=== PATIENT | female | born 1985 | race Caucasian/White ===

== ENCOUNTER → 2019-06-23 10:33 | Outpatient (CLI) | payer SELFPAY ==
[2019-06-23 08:52] VITALS: BMI 25.7
[2019-06-23 10:42] LABS: Pathologist Comment May follow
[2019-06-23 11:06] LABS: Synovial Fld Mononuclear WBC % 11.8 %; Synovial Fld Polynuclear WBC % 88.2 %
[2019-06-23 11:49] LABS: AUTO B FLUID DILUENT BKGD CT WBC <0.1 RBC <0.01 (W<.1,R<.01); CRYSTALS, BODY FLUID CALCIUM PYROPHOS; Source- Body Fluid SYNOVIAL
[2019-06-23 11:51] LABS: Appearance /Synovial Fluid Sl Cl (CLEAR); Color / Synovial Fluid Yellow (Pale Yellow); RBC /Synovial Fluid 798 /mm3 (0)
[2019-06-23 12:03] LABS: Lymph 4 %; Neutrophil 96 % (0-25)
[2019-06-23 12:04] LABS: Body Fluid QC Type(s) BF4Q,BF5Q
[2019-06-24 13:34] LABS: Pathologist Review Reviewed
[2019-06-24 16:32] LABS: GLUCOSE, SYNOVIAL FLUID 28 mg/dL (.); PROTEIN, SYNOVIAL FLUID 5.5 g/dL (.)
== END ==
PROVIDERS: Visit Provider Orthopaedic Surgery
DX: A69.23 Arthritis due to Lyme disease (principal)
CPT/HCPCS: 82945; 84157; 87015; 87070; 87075; 87102; 87116; 87205; 87206; 89050; 89051; 89060

== ENCOUNTER → 2021-06-17 | Outpatient (CLI) | payer SELFPAY ==
[2019-06-23 08:52] VITALS: BMI 25.7
[2021-06-17 18:02] LABS: Body Fluid QC Type(s) BF3Q; CRYSTALS, BODY FLUID See PATH REV
[2021-06-17 18:08] LABS: Source- Body Fluid SYNOVIAL
[2021-06-20 13:06] LABS: Pathologist Review Reviewed
== END | disposition home or self-care (01) ==
LOC: LABSPEC 14:43
PROVIDERS: Referring Provider Orthopaedic Surgery; Visit Provider Orthopaedic Surgery
DX: M25.461 Effusion, right knee (principal)
CPT/HCPCS: 87070; 87075; 87205; 89060

== ENCOUNTER → 2021-08-29 | Outpatient (CLI) | payer SELFPAY ==
[2021-08-29 10:19] LABS: Body Fluid QC Type(s) BF1Q; Source- Body Fluid SYNOVIAL
[2021-08-29 13:15] LABS: CRYSTALS, BODY FLUID REV
[2021-08-29 15:46] LABS: EXAGEN MAILED SPECIMEN
[2021-08-29 17:38] LABS: Absolute Lymphocyte Count 1.83 X10^3/uL (0.83-4.51); Absolute Neutrophil Count 6.6 X10^3/uL (2.0-7.7); Basophil# 0.02 X10^3/uL; Basophil% 0.2 % (0-1); Eosinophils% 1.1 % (0-5); Hematocrit 35.9 % (37-47); Hemoglobin 11.7 g/dL (12.0-15.0); Lymphocyte # 1.83 X10^3/ul (0.83-4.51); Mean Corp Hgb Conc 32.6 g/dL (32-36); Mean Corpuscular Hgb 28.8 pg (27.0-32.0); Mean Corpuscular Volume 88.4 fL (81-99); Mean Platelet Vol. 8.9 fl (6.2-12.0); Monocyte# 0.58 X10^3/uL; Monocyte% 6.3 % (0-10); NRBC Flagged by Analyzer 0 % (0-5); Neutrophil # 6.59 X10^3/uL (2.7-7.7); Platelet Count 421 K/mm3 (150-450); RBC Distribution Width CV 12.4 % (11.6-14.6); RBC Distribution Width SD 40.1 fl (35.1-43.9); Red Blood Count 4.06 M/mm3 (4.2-5.4); White Blood Count 9.2 K/mm3 (4.4-11.0)
[2021-08-29 17:41] LABS: Color, Urine Yellow (Yellow); Glucose, Dipstick Normal (Normal); Ketone-Dipstick Negative (Negative); Leukocyte Esterase-Dipstick Negative /ul (Negative); Nitrite-Dipstick Negative (Negative); Occult Blood-Urine Negative /ul (Negative); Protein-Dipstick Negative (Negative); Urine Bilirubin Dipstick Negative (Negative); Urine Clarity Clear (Clear); Urine Urobilinogen Normal (Normal); Urine pH 6.5 (5.0 - 8.0)
[2021-08-29 17:53] LABS: ALB/GLOB Ratio 0.7 RATIO (0.9-2.4); AST(SGOT) 14 U/L (15-37); Alanine Aminotransfer ALT/SGPT 51 U/L (13-56); Albumin, Serum 3.6 g/dL (3.2-5.0); Alkaline Phosphatase 120 U/L (45-117); Anion Gap 9 (5-15); BUN 11 mg/dL (7-18); BUN/Creat Ratio 15.1 RATIO (10-20); Calcium,Total 9.9 mg/dL (8.5-10.1); Chloride 102 mmol/L (98-107); Creatinine, Serum 0.73 mg/dL (0.55-1.02); EST Glomerular Filtration Rate 96 mL/min (>60); Est Glom Filt Rate - Afr Amer 117 mL/min (>60); Globulin 5.3 g/dL (2.2-4.2); Glucose 82 mg/dL (74-106); Potassium 3.7 mmol/L (3.5-5.1); Protein, Total 8.9 g/dL (6.4-8.2); Sodium Level 138 mmol/L (136-145)
[2021-08-29 17:55] LABS: Protein, Urine (Random) < 6.0 mg/dL (<11.9); Protein:Creat Ratio 153 mg/g CRE (0-200)
[2021-08-29 17:57] LABS: International Normalized Ratio 1.1; Prothrombin Time (Protime)PT. 13.8 SECONDS (11.7-14.9)
[2021-08-29 17:58] LABS: Partial Thromboplast Time 42.4 Seconds (24.1-36.2)
[2021-08-30 09:02] LABS: Hepatitis B Surface Antibody Non-Reactive; Hepatitis B Surface Antigen Non-Reactive (Nonreactive); Hepatitis C Antibody Non-Reactive (Nonreactive)
[2021-09-01 07:57] LABS: Thrombin Time 15.2 sec (0.0-23.0)
[2021-09-07 00:07] LABS: Dilute Russell Viper Venom 71.3 sec (0.0-47.0); Hexagonal Phase Phospholipid 3 sec (0-11); Hexagonal Phase Phospholipid 2 3 sec (0-11); Lyme IgG P18 Ab Present (.); Lyme IgG P23 Ab Present (.); Lyme IgG P28 Ab Present (.); Lyme IgG P30 Ab Present (.); Lyme IgG P39 Ab Present (.); Lyme IgG P41 Ab Present (.); Lyme IgG P45 Ab Present (.); Lyme IgG P58 Ab Present (.); Lyme IgG P66 Ab Present (.); Lyme IgG P93 Ab Present (.); Lyme IgM P23 Ab Absent (.); Lyme IgM P39 Ab Absent (.); Lyme IgM P41 Ab Absent (.); PTT-LA Mix 52.4 sec (0.0-48.9)
[2021-09-07 13:25] LABS: Interpretation Comment: (.); Lyme IgG WB Interpretation Positive (.); Lyme IgM WB Interpretation Negative (.)
== END | disposition home or self-care (01) ==
PROVIDERS: Internal Medicine Rheumatology; Referring Provider Orthopaedic Surgery; Visit Provider Orthopaedic Surgery
DX: M06.4 Inflammatory polyarthropathy (principal); R76.8 Other specified abnormal immunological findings in serum; M25.462 Effusion, left knee
CPT/HCPCS: 36415; 80053; 81002; 82570; 84156; 85025; 85598; 85610; 85670; 85730; 86617; 86706; 86803; 87340; 89060

== ENCOUNTER → 2025-10-29 | Outpatient (CLI) | payer SELFPAY ==
--- NOTE | 2025-10-29 13:07 | US_ITS ---
PROCEDURE: PELVIC W/ TRANSVAGINAL 10/29/2025 REASON FOR EXAM: EVALUATE FOR FIBROID TECHNIQUE: Procedure Code: [id number] Modality: US Procedure: PELVIC W/ TRANSVAGINAL COMPARISON: None FINDINGS: Measurements: Uterus:Measures 10.2 x 6.2 x 4.6 cm. Hypoechoic lesion in the posterior uterus measures 3.4 x 3.4 x 2.6 cm. No other lesions. Endometrial Thickness: Measures 6 mm. No focal lesion. Right Ovary: Measures 3.1 x 2.9 x 2.1cm. Normal vascular flow. No mass. Left ovary measures 3.0 x 2.8 x 1.6 cm. Normal vascular flow. Other: No free pelvic fluid. US/Pelvic w/ Transvaginal IMPRESSION: 3.4 cm uterine leiomyoma. Reading Location: [id number]
--- OUTSIDE RECORDS SUMMARY | 2025-10-29 15:42 | XMS RPT_ITS | CCD ---
Author Organization [facility] Inform ion Partnership [facility] Care Team Providers Care Alterations Workroom Clerk Name Role Phone WHIT TRIPLETT Admitting Unavailable WHIT TRIPLETT Attending Unavailable WHIT TRIPLETT Primary Care Unavailable BUDDY LOZANO Consulting Unavailable PROVIDER, UNKNOWN Consulting Unavailable Care Physician, No Primary Primary Care Provider Unavailable Care Physician, No Primary Referring Provider Un available Jesus Bennett Attending Provider [phone] Care Physician, No Primary Primary Care Unava ilable Jesus Bennett Attending Unavailable Care Physician, No Primary Referring Unava ilable Jesus Bennett Attending Unavailable Care Physician, No Primary Referring Unava ilable Care Physician, No Primary Primary Care Unava ilable Medications Current Medications Medication Drug Class(es) Dates Sig (Normalized) Sig (Original) amoxicillin 875 mg / clavulanate 125 mg oral tablet (3 sources) Penicillin-class Antibacterial Start: 06-10-2025 Amoxicillin-Pot Clavulanate 875-125 mg tablet Active 1 {tbl} PO Q12H 14 0 June 10, 2025 12:00am Start: 02-27-2024 End: 12-30-2024 Amoxicillin-Pot Clavulanate 875-125 mg tablet Discontinued 1 {tbl} PO Q12H 20 0 February 27, 2024 12:00am December 30, 2024 11:16am Start: 04-04-2023 End: 04-11-2023 Amoxicillin-Pot Clavulanate 875-125 mg tablet Discontinued 1 {tbl} PO Q12H 14 7 0 April 04, 2023 12:00am April 10, 2023 12:00am April 11, 2023 12:04am 12 hr dextromethorphan hydrobromide 30 mg / guaiFENesin 600 mg extended release oral tablet (2 sources) Uncompetitive E-ejyljv-S-aspartate Receptor Antagonist, Sigma-1 Agonist Start: 12-30-2024 Dextromethorphan-Guaifenesin 30-600 mg tablet extended release 12 hr Active 1 {tbl} PO Q12H as needed for cough 14 0 December 30, 2024 1:00am Start: 04-04-2023 End: 02-27-2024 take 1 mL by mouth every four hours as needed for cough Dextromethorphan-Guaifenesin (Adult Tuss in Cough Congest Dm) 10-100 mg/5 mL liquid Discontinued 10 mL PO Q4H as needed for cough 236 0 April 04, 2023 12:00am February 27, 2024 8:46am Lactobacillus Combination No.4 (Probiotic) 3 billion cell capsule (1 source) Start: 09-23-2021 take 3 capsules by mouth once daily Lactobacillus Combination No.4 (Probiotic) 3 billion cell capsule Active 3000 NMA PO DAILY September 23, 2021 12:00am administer with a meal Multivitamin tablet (1 source) Start: 09-23-2021 Multivitamin t ablet Active 1 {tbl} PO DAILY September 23, 2021 12:00am Turmeric extract (1 source) Start: 08-29-2021 Turmeric 400 m g capsule Active mg PO August 29, 2021 12:00am Completed/Discontinued Medications Medication Drug Class(es) Dates Sig (Normalized) Sig (Original) doxycycline hyclate 100 mg oral capsule (2 sources) Tetracycline-class Drug Start: 06-23-2019 End: 08-29-2021 take 1 capsule by mouth twice daily Doxycycline Hyclate 100 mg capsule Discontinued 100 mg PO TWICE A DAY 56 0 June 23, 2019 12:00am August 29, 2021 8:29am 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 12 hr guaiFENesin 600 mg extended release oral tablet (1 source) Start: 02-27-2024 End: 12-30-2024 take 1 tablet by mouth every twelve hours as needed for congestion Guaifenesin 600 mg tablet extended release 12hr Discontinued 600 mg PO Q12H as needed for congestion 20 0 February 27, 2024 12:00am December 30, 2024 11:16am oseltamivir 75 mg oral capsule (1 source) Neuraminidase Inhibitor Start: 12-30-2024 End: 01-04-2025 take 1 capsule by mouth every twelve hours Oseltamivir (Tamiflu) 75 mg capsule Discontinued 75 mg PO Q12H 10 5 0 December 30, 2024 1:00am January 03, 2025 1:00am January 04, 2025 1:12am predniSONE 10 mg oral tablet (1 source) Start: 09-09-2021 End: 06-10-2025 Prednisone 10 mg tablet Discontinued NMA PO September 09, 2021 12:00am June 10, 2025 3:13pm Problems Problem Classification Problem Date Documented Da te Episodic/Chronic Influenza (1 source) Influenza due to Influenza A virus; Translations: [Influenza due to other identified influenza virus with other respiratory manifestations] 12-30-2024 Episodic Joint disorders and dislocations; trauma-related (1 source) Tear of lateral meniscus of knee; Translations: [Other tear of lateral meniscus, current injury, unspecified knee, initial encounter] 09-23-2021 Episodic Other infections; including parasitic (1 source) Lyme disease; Translations: [Lyme disease, unspecified] 08-29-2021 Episodic Other lower respiratory disease (1 source) Cough; Translations: [Cough] 12-30-2024 Episodic Other non-traumatic joint disorders (1 source) Effusion of joint of left knee; Translations: [Effusion, left knee] 08-29-2021 Episodic Other upper respiratory infections (1 source) Sinusitis; Translations: [Chronic sinusitis, unspecified] 04-04-2023 Chronic Other upper respiratory infections (1 source) Acute sinusitis; Translations: [Acute sinusitis, unspecified] 06-10-2025 Episodic Unclassified (1 source) Cough, unspecified; Translations: [Cough, unspecified] Onset: 12-30-2024 Results Test Name Value Interpretation Reference Range Facil ity Office Visit Reporton 2024 Office Visit Report [facility] [address] [place] [address] OFFICE VISIT Date of Service: 06/10/25 MR#: [id number] Acct: [id number] Patient: MARQUES TRIPLETT Rep #: [id number] 3 : 1985 Provider: GUZMAN Piña Age/Sex: 40/F Location: [facility] Status: Signed Intake Vital Signs 12/30/24 10:15 06/10/25 15:11 Height 1.55 m 1.55 m Weight: 76.204 kg 77.564 kg BMI 31.7 32.3 BP 117/81 H 108/70 Blood Pressure Location Rt brachial Rt brachial Position Sitting Sitting Pulse 85 82 Pulse Source Monitor Monitor Temp 98.6 F 98.7 F Temp Source Temporal Temporal Pulse Oximetry (%) 98 96 Oxygen Delivery Method room air Intake Visit Reasons: EAR ACHE/ SORE THROAT/HEADACHE Chief Complaint: sinus pain Allergies No Known Allergies Allergy (Unverified 06/10/25 15:12) Medications ???Medication ???Instructions ???Recorded ???Confirmed ???Type turmeric 400 mg capsule mg PO 08/29/21 06/10/25 History lactobacillus combination no.4 3 3,000 mmu cells PO DAILY 09/23/21 06/10/25 History billion cell capsule (Probiotic) multivitamin 1 tab PO DAILY 09/23/21 06/10/25 H istory dextromethorphan-guai fenesin 30 1 tab PO Q12H PRN cough #14 tabs 0 12/30/24 06/10/25 Rx mg-600 mg tablet extended [id number] hr amoxicillin 875 mg-potassium 1 tab PO Q12H #14 tabs 06/10/25 Rx clavulanate 125 mg tablet PFSH Medical History (Updated 06/10/25 @ 15:21 by Jesus HINDS, GUZMAN) Hx of Lyme disease HPI HPI Chief Complaint: sinus pain Details: MARQUES TRIPLETT, is a 40 F who presents to the office today for sinus pain. This began yesterday. Pt has left maxillary and frontal sinus pain and pressure. She also has left sided ear pain and left sided sore throat. She has no fever/chills. No cough. No n/v/d. She has not tried taking anything for this yet. ROS Const Constitutional: Positive for fatigue; No chills or fever(s) ENT ENT: Positive for ear or mastoid pain, nasal congestion, sinus pressure, sinus pain and sore throat Resp Respiratory: No cough, shortness of breath or wheezing Gastro GI: No diarrhea, nausea/dyspepsia or vomiting Endo Endocrine: Positive for fatigue Aller/Imm Allergy/Immunologic: No wheezing Exam Const General: cooperative, healthy appearing, comfortable, no acute distress, well developed and well groomed Nutritional Appearance: average body habitus and well nourished Orientation: alert, awake and oriented x3 HENMT Head: normocephalic and atraumatic Face and sinus: sinus tenderness frontal and maxillary Throat: postnasal drainage Neck Lymphatic: lymphadenopathy bilateral anterior cervical Resp Effort Inspection: normal respiratory effort, able to speak in complete sentences, symmetric chest movement and no cough Auscultation: Bilateral: Clear to Auscultation Cardio Rate: regular rate Rhythm: regular rhythm Heart Sounds: no murmurs Coding Level of Care Code Off vis,est,level 3 Diagnoses Acute sinusitis J01.90 Assessment and Plan Assessment and Plan (1) Acute sinusitis: Status: Acute Plan: start amox clav bid x 7 days. also start flonase daily. instructions on proper use of flonase given. if no improvement follow up 1 week for re-eval no chronic medical issues/medication use Medications: New amoxicillin-pot clavulanate 875-125 mg 1 TAB PO Q12H 14 tabs 0RF 06/10/25 1522 Date Jesus HINDS Cosigner Signature: Date (if applicable) CC: Normal [facility] OPERATIVE PROCEDURESon 01-25 OPERATIVE PROCEDURES [facility] OPERATIVE REPORT NAME ACCOUNT SEX AGE ADMIT DISCHARGE PT MED. RECORD# NUMBER DATE DATE TYPE MARQUES TRIPLETT [id number] F 39 01/21/25 Sridevi JIMÉNEZ [id number] ROOM: [facility] DATE OF : 1985 DICTATING PHYSICIAN: Whit Triplett DATE OF SURGERY: January 21, 2025 SURGEON: Whit Triplett MD CONCRETE HOPPER OPERATOR: ANESTHESIOLOGIST: Sonny Munroe CRNA ANESTHETIC: PREOPERATIVE DIAGNOSIS: POSTOPERATIVE DIAGNOSIS: Screening colonoscopy, history of colonic polyps with atypia, and hemorrhoids. OPERATION PERFORMED: Screening colonoscopy. COMPLICATIONS: ESTIMATED BLOOD LOSS: None. SPECIMEN: None. DISPOSITION: Stable, to recovery. INDICATIONS: Marques Triplett is a pleasant 39-year-old lady who has a prior history of a colon polyp with atypia. DESCRIPTION OF OPERATION: After informed consent and intravenous fluids, she was brought to the endoscopy room and placed on a padded gurney in the left lateral decubitus position with adequate padding at pressure points. Time-out verification was done appropriately. The patient was given sedation per Anesthesia with monitoring throughout. Digital examination showed external hemorrhoidal tags, normal tone, and no discrete mass. The Olympus [id number] flexible endoscope was introduced through the anal verge and carefully advanced, protecting the surrounding mucosa. The scope was advanced through the rectal vault and then through the sigmoid colon, which Page 1 of 2 MARQUES TRIPLETT Operative Report MARQUES TRIPLETT : 1985 was rather tortuous. The scope was advanced through the descending colon, beyond the splenic flexure, transverse colon, hepatic flexure, and ascending colon toward the ileocecal junction. The landmarks were noted and documented. The prep was good. The scope was carefully rotated with irrigation and suctioning in a xgdd-hls-hjoin movement and withdrawn. The ascending, transverse, descending and sigmoid colon were carefully viewed with irrigation and suctioning in a circular rotation and a [id number]-qlo-yxuvo movement as needed. In the sigmoid, the scope was withdrawn down into the rectal vault, retroflexed, rotated, straightened out, and withdrawn with decompression. There were some internal and external hemorrhoids, but there was no tear, no fissure, no fungating mass, and no angiodysplasia. No polyps were seen. No biopsies were taken. The patient can have repeat endoscopy, and in view of the fact that she had atypia I would recommend repeating in 5 years rather than the usual 10 years. The case will be discussed with the patient when she is more awake and alert. Follow-up will be as needed. Dictated By: Whit Triplett MD 01/21/25 11:10 JOB #: [id number] Transcribed By: austin 01/21/25 11:54 Electronically signed by: E-Sign Dr. Whit Triplett MD 01/25/25 16:34 Page 2 of 2 MARQUES TRIPLETT Operative Report Normal [facility] URINEon 01-21-2025 Beta HCG ( test) Ql (U) Negative Normal NEGATIVE [facility] Comment on above: Performed By: #### [id number] #### [facility],[address] [place] [address] EXTERNAL QC DONE? YES Normal [facility] Comment on above: Result Comment: Very dilute urine specimens, as indicated by a low specific gravity, may not contain arborist representative levels of hCG. If is still suspected, a first morning urine specimen should be collected 48 hours later and tested. Performed By: #### 2 [id number] #### [facility],[address] [place], [place] [address] INTERNAL QC PASS Normal [facility] Comment on above: Performed By: #### 2 [id number] #### [facility],[address] [place] [address] Office Visit Reporton 2024 Office Visit Report [facility] [address] [place] [id number] OFFICE VISIT Date of Service: 12/30/24 MR#: [id number] Acct: [id number] Patient: MARQUES TRIPLETT ANN Rep #: [id number] 2 : 1985 Provider: GUZMAN Piña Age/Sex: 39/F Location: [facility] Status: Signed Intake Vital Signs 02/27/24 08:39 12/30/24 10:15 Height 1.55 m 1.55 m Weight: 73.936 kg 76.204 kg BMI 30.8 31.7 BP 109/71 117/81 H Blood Pressure Location Lt brachial Rt brachial Position Sitting Sitting Pulse 67 85 Pulse Source Monitor Monitor Temp 98.6 F 98.6 F Temp Source Temporal Temporal Pulse Oximetry (%) 98 98 Intake Visit Reasons: FEVER, EXPOSED TO FLU/SORE THROAT Chief Complaint: flu Allergies No Known Allergies Allergy (Unverified 12/30/24 10:16) Medications ???Medication ???Instructions ???Recorded ???Confirmed ???Type turmeric 400 mg capsule mg PO 08/29/21 12/30/24 History prednisone 10 mg tablet ea PO 09/09/21 12/30/24 History lactobacillus combination no.4 3 3,000 mmu cells PO DAILY 09/23/21 12/30/24 History billion cell capsule (Probiotic) multivitamin 1 tab PO DAILY 09/23/21 12/30/24 H istory dextromethorphan-guai fenesin 30 1 tab PO Q12H PRN cough #14 tabs 0 12/30/24 12/30/24 Rx mg-600 mg tablet extended [id number] hr oseltamivir 75 mg capsule (Tamiflu) 75 mg PO Q12H 5 days #10 caps 0 12/30/24 12/30/24 Rx PFSH Medical History (Updated 12/30/24 @ 10:39 by Jesus HINDS, PA) Hx of Lyme disease HPI HPI Chief Complaint: flu Details: MARQUES TRIPLETT, is a 39 F who presents to the office today for the flu. Pt has started to feel ill with fevers yesterday. She also has a mildly productive cough without sob, all over body aches, and some congestion. No N/V/D. Several family members are currently sick with influenza A. ROS Const Constitutional: Positive for body ache, fatigue and fever(s); No chills ENT ENT: Positive for nasal congestion and nasal discharge; No ear or mastoid pain or sore throat Resp Respiratory: Positive for cough Cough: Yes productive; No shortness of breath or wheezing Gastro GI: No diarrhea, nausea/dyspepsia or vomiting Endo Endocrine: Positive for fatigue Aller/Imm Allergy/Immunologic: No wheezing Exam Const General: cooperative, healthy appearing, comfortable, no acute distress, well developed and well groomed Nutritional Appearance: average body habitus and well nourished Orientation: alert, awake and oriented x3 HENMT Head: normocephalic and atraumatic Ears: hearing grossly normal bilaterally, external ears normal and TM's normal bilaterally Resp Effort Inspection: normal respiratory effort, able to speak in complete sentences, symmetric chest movement and cough Auscultation: Bilateral: Clear to Auscultation Cardio Rate: regular rate Rhythm: regular rhythm Heart Sounds: no murmurs Results POC FLU A B Office Flu A B Negative FLU A B Last Edit by Sharon Butler on 12/30/24 10:24 Coding Level of Care Code Off vis,est,level 3 Diagnoses Influenza A J10.1 Assessment and Plan Assessment and Plan (1) Influenza A: Status: Acute Plan: Rapid test today is negative, however I suspect a false negative as she has had multiple direct contacts with family members who currently have infleunza a. As her symptoms began yesterday she is within the window for tamiflu - start malgorzata. mucinex dm prn cough. Orders: Orders POC FLU A B Today R05.9 - Cough, unspecified Medications: New oseltamivir (Tamiflu) 75 mg PO Q12H 5 days 10 caps 0RF dextromethorphan-guai fenesin 30-600 mg 1 TAB PO Q12H PRN 14 tabs 0RF cough 12/30/24 1151 Date Jesus HINDS Cosigner Signature: Date (if applicable) CC: Normal [facility] T4, FREEon 06-14-2024 Free T4 [Mass/Vol] 1.2 ng/dL Normal 0.8-1.8 [facility] Comment on above: Performed By: #### 8 [id number], 866 #### [facility] [address], [address] [place] [phone] Valve Steamer: Chriss Ramirez MD TSHon 06-14-2024 TSH Qn 0.76 m[IU]/L Normal [facility] Comment on above: Result Comment: Refe rence Range > or = 20 Years 0.40-4.50 Ranges First trimester 0.26-2.66 Second trimester 0.55-2.73 Third trimester 0.43-2.91 Performed By: #### 8 99, 866 #### [facility] [address], [address] [place] [phone] Valve Steamer: Chriss Ramirez MD AFB Cult and Stainon 021 AFB Cult and Stain Specimen Desc: Fluid-other RIGHT KNEE Sp. Request/Comment: Specimen received in sterile container. RED TOP Smear Result NAFBFA Culture Result [id number] Report Status 10/05/2021 FINAL Normal [facility] Fungal Cultureon 11-03-2021 Fungal Culture Specimen Desc: Fluid-other KNEE FLUID Sp. Request/Comment: Specimen received in sterile container. RED TOP Culture Result [id number] Report Status 09/21/2021 FINAL Normal [facility] Vital Signs Date Time Vital Sign Value Performing Clinician Merari zamudio 06-10-2025 15:11-0400 Body height 154.94 cm No Primary Care Physician [facility] 06-10-2025 15:11-0400 Body mass index (BMI) [Ratio] 32.3 kg/m2 No Primary Care Physician [facility] 06-10-2025 15:11-0400 Body temperature 98.7 [degF] No Primary Care Physician [facility] 06-10-2025 15:11-0400 Body weight 77.56 kg No Primary Care Physician [facility] 06-10-2025 15:11-0400 Diastolic blood pressure 70 mm[Hg] No Primary Care Physician [facility] 06-10-2025 15:11-0400 Heart rate 82 /min No Primary Care Physician [facility] 06-10-2025 15:11-0400 SaO2% (BldA) [Mass fraction] 96 % No Primary Care Physician [facility] 06-10-2025 15:11-0400 Systolic blood pressure 108 mm[Hg] No Primary Care Physician [facility] Encounters Encounter Date Encounter Type Care Provider Facility Start: 06-10-2025 End: 06-10-2025 Patient encounter procedure Jesus HINDS -[facility] Work Phone: Start: 06-10-2025 End: 06-10-2025 ambulatory No Primary Care Physician -[facility] Start: 01-21-2025 End: 01-21-[address] [facility] Start: 12-30-2024 End: 12-30-2024 ambulatory Jesus HINDS Facility:[facility] Payers Date Payer Category Payer Self-pay Unknown [id number] Unknown [id number] Social History Date Type Detail Facility Tobacco smoking stat [facility] Unknown if ever smoked [facility] Work Phone: Start: 1985 Sex Assigned At Female [facility] Progress note 06-10-2025 Note Date & Type Note Facility 06-10-2025 Progress note [facility] Progress note 06-10-2025 Note Date & Type Note Facility 06-10-2025 Progress note Note Date/Time June 10, 2025 3:22pm [facility] [address] [place] [address] OFFICE VISIT Date of Service: 06/10/25 MR#: [id number] Acct: [id number] Patient: MARQUES TRIPLETT Rep #: [id number] : 1985 Provider: GUZMAN Xiong Age/Sex: 40/F Location: [facility] Status: Signed Intake Vital Signs 12/30/24 10:15 06/10/25 15:11 Height 1.55 m 1.55 m Weight: 76.204 kg 77.564 kg BMI 31.7 32.3 BP 117/81 H 108/70 Blood Pressure Location Rt brachial Rt brachial Position Sitting Sitting Pulse 85 82 Pulse Source Monitor Monitor Temp 98.6 F 98.7 F Temp Source Temporal Temporal Pulse Oximetry (%) 98 96 Oxygen Delivery Method room air Intake Visit Reasons: EAR ACHE/ SORE THROAT/HEADACHE Chief Complaint: sinus pain Allergies No Known Allergies Allergy (Unverified 06/10/25 15:12) Medications ?Medication ?Instructions ?Recorded ?Confirmed ?Type turmeric 400 mg capsule mg PO 08/29/21 06/10/25 Hist ory lactobacillus combination no.4 3 3,000 mmu cells PO DA MARJAN 09/23/21 06/10/25 History billion cell capsule (Probiotic) multivitamin 1 tab PO DAILY 09/23/2105/20 History dextromethorphan-guaifenesin 30 1 tab PO Q12H PRN coug h #14 tabs 12/30/24 06/10/25 Rx mg-600 mg tablet extended [id number] hr amoxicillin 875 mg-potassium 1 tab PO Q12H #14 tabs 06/10/25 Rx clavulanate 125 mg tablet PFSH Medical History (Updated 06/10/25 @ 15:21 by GUZMAN Weber) Hx of Lyme disease HPI HPI Chief Complaint: sinus pain Details: MARQUES TRIPLETT, is a 40 F who presents to the office today for sinus pain. This began yesterday. Pt has left maxillary and frontal sinus pain and pressure. She also has left sided ear pain and left sided sore throat. She has no fever/chills. No cough. No n/v/d. She has not tried taking anything for this yet. ROS Const Constitutional: Positive for fatigue; No chills or fever(s) ENT ENT: Positive for ear or mastoid pain, nasal congestion, sinus pressure, sinus pain and sore throat Resp Respiratory: No cough, shortness of breath or wheezing Gastro GI: No diarrhea, nausea/dyspepsia or vomiting Endo Endocrine: Positive for fatigue Aller/Imm Allergy/Immunologic: No wheezing Exam Const General: cooperative, healthy appearing, comfortable, no acute distress, well developed and well groomed Nutritional Appearance: average body habitus and well nourished Orientation: alert, awake and oriented x3 HENMT Head: normocephalic and atraumatic Face and sinus: sinus tenderness frontal and maxillary Throat: postnasal drainage Neck Lymphatic: lymphadenopathy bilateral anterior cervical Resp Effort & Inspection: normal respiratory effort, able to speak in complete sentences, symmetric chest movement and no cough Auscultation: Bilateral: Clear to Auscultation Cardio Rate: regular rate Rhythm: regular rhythm Heart Sounds: no murmurs Coding Level of Care Code Off vis,est,level 3 Diagnoses Acute sinusitis J01.90 Assessment and Plan Assessment and Plan (1) Acute sinusitis: Status: Acute Plan: start amox clav bid x 7 days. also start flonase daily. instructions on proper use of flonase given. if no improvement follow up 1 week for re-eval no chronic medical issues/medication use Medications: New amoxicillin-pot clavulanate 875-125 mg 1 TAB PO Q12H 14 tabs 0RF 06/10/25 1522 <Electronically signed by Jesus HINDS> Date _ Jesus HINDS Cosigner Signature: Date (if applicable) CC: ~ [facility] Work Phone: Evaluation note Note Date & Type Note Facility Evaluation note No assessment information availa ignacio [facility] Work Phone: Reason for referral (narrative) Note Date & Type Note Facility Reason for referral (narrative) No reason for referral information available [facility] Work Phone: Summary Purpose Family History No Family History Records FoundNo Family History Records FoundNo Family History Records FoundNo Family History Records Found Advance Directives No Advanced Directives Records FoundNo Advanced Directives Records FoundNo Advanced Directives Records FoundNo Advanced Directives Records Found Chief Complaint and Reason for Visit Chief Complaint Admit Date EAR ACHE/ SORE THROAT/HEADACHE May 3:06pm Additional Source Comments INFORMATION SOURCE (unrecogn ized section and content) DATE CREATED AUTHOR 10/06/2021 [facility] DATE CREATED AUTHOR AUTHOR'S ORGANIZ ATION 06/14/2024 [facility] DATE CREATED AUTHOR AUTHOR'S ORGANIZ ATION 01/26/2025 [facility] DATE CREATED AUTHOR AUTHOR'S ORGANIZ ATION 06/12/2025 [facility] Care Teams (unrecognized sec tion and content) Team Status: Active Member Role/Relationship Status Dates No Primary Care Physician Primary Care Provider Active Team Status: Inactive Member Role/Relationship Status Dates No Primary Care Physician Primary Care Provider Active Start: June 10, 2025 End: June 10, 2025 No Primary Care Physician Referring Provider Active Start: June 10, 2025 End: June 10, 2025 GUZMAN Weber Attending Provider Active Sta rt: June 10, 2025 End: June 10, 2025 Goals (unrecognized section and content) Goals may be documented in a n alternate section FOR RECORDS PERTAINING TO PATIENTS WHO ARE OR HAVE BEEN ENROLLED IN A CHEMICAL DEPENDENCY/SUBSTANCEABUSE PROGRAM, SOME INFORMATION MAY BE OMITTED. This clinical summary was aggregated from multiple sources. Caution should be exercised in using it in the provision of clinical care. This summary normalizes information from multiple sources, and as a consequence, information in this document may materially change the coding, format and clinical context of patient data. In addition, data may be omitted in some cases. CLINICAL DECISIONS SHOULD BE BASED ON THE PRIMARY CLINICAL RECORDS. [facility] [employer] [facility]. provides no warranty or guarantee of the accuracy or completeness of information in this document.
== END | disposition home or self-care (01) ==
PROVIDERS: PCP Physician Assistant; Referring Provider Nurse Practitioner Family; Visit Provider Nurse Practitioner Family
DX: D25.9 Leiomyoma of uterus, unspecified (principal)
CPT/HCPCS: 76830; 76856